=== PATIENT | female | born 1950 | race Caucasian/White ===

== ENCOUNTER 2018-09-19 06:43 | Day surgery (SDC) | payer MEDICARE, OTHER ==
[~2018-09-19] VITALS: Ht 157.5 cm; Wt 97.5 kg
[~2018-09-19 06:43] MED LIST: ASPI81CH PO; Dyazide 37.5-21 EACH PO; LEVSOD88 PO; OXYACE5T PO
--- NOTE | 2018-09-19 07:06 | NUR ---
History, Chart, Medications and Allergies reviewed before start of procedure. Patient confirms NPO status and agrees with scheduled surgery. Reports taking all of colon prep with clear results. Patient States Post-Procedure ride home has been arranged with her .
--- NOTE | 2018-09-19 07:35 | NUR ---
Lungs clear T/O to Auscultation.
--- NOTE | 2018-09-19 08:32 | NUR ---
09/19/[address] ANESTHESIA
--- NOTE | 2018-09-19 08:55 | NUR ---
PT LETHARGIC UPON RETURN FROM PROCEDURE. WAKES WITH VERBAL + TOUCH. DOES NOT ANSWER QUESTIONS OR OPEN EYES. AT BEDSIDE. CLOSE MONITORING.
--- NOTE | 2018-09-19 09:11 | NUR ---
PT AWAKE, ALERT, CONVERSING WITH STAFF. STATES SHE WOULD LIKE TO GO HOME. DENIES PAIN OR DISCOMFORT. REVIEWED DISCHARGE INSTRUCTIONS WITH PATIENT AND , BOTH OF WHOM VERBALIZE UNDERSTANDING OF ALL INSTRUCTIONS GIVEN.
--- NOTE | 2018-09-19 09:27 | NUR ---
IV D/C TIP INTACT. PT DISCHARGED HOME VIA W/C WITH TO DRIVE HER.
== END 2018-09-19 22:55 | disposition home or self-care (01) ==
LOC: ORSCMMR 06:43 → ORD 08:15 → ORSCMMR 08:30
PROVIDERS: Surgery
PROC: 0DBL8ZX Excision of Transverse Colon, Via Natural or Artificial Opening Endoscopic, Diagnostic (ICD-10-PCS; principal; 2018-09-19 08:30)
DX: Z12.11 Encounter for screening for malignant neoplasm of colon (principal); Z80.0 Family history of malignant neoplasm of digestive organs; D12.3 Benign neoplasm of transverse colon; I10 Essential (primary) hypertension; E03.9 Hypothyroidism, unspecified; E66.01 Morbid (severe) obesity due to excess calories; Z68.39 Body mass index [BMI] 39.0-39.9, adult; Z79.899 Other long term (current) drug therapy; Z79.82 Long term (current) use of aspirin
CPT/HCPCS: 82947; 88305; J7120

== ENCOUNTER → 2019-05-03 | Outpatient (CLI) | payer MEDICARE, OTHER ==
[~2019-05-03] MED LIST changes: +CLIN300 PO; +EPIPEN 2-P0.3 MG/0.3 IM; +PRED20 PO
== END | disposition home or self-care (01) ==
LOC: LAB SHORT 14:00 → LAB 14:00
DX: L08.9 Local infection of the skin and subcutaneous tissue, unspecified (principal)
CPT/HCPCS: 87070; 87077; 87102; 87147; 87186; 87205

== ENCOUNTER 2019-05-08 04:16 | Emergency (ER) | payer MEDICARE, OTHER ==
[~2019-05-08] VITALS: Ht 157.5 cm; Wt 86.2 kg
[~2019-05-08 04:16] MED LIST changes: -CLIN300 PO; -EPIPEN 2-P0.3 MG/0.3 IM; -PRED20 PO
[2019-05-08] MEDS ORDERED: CLIN300 PO (04:48)
[2019-05-08 05:40] LABS: BASOPHILS ABSOLUTE AUTO 0.05 K/mm3 (0.00-0.23); BASOPHILS PERCENT AUTO 0 % (0-2); EOSINOPHILS PERCENT AUTO 5 % (0-6); Hematocrit 41.8 % (33.0-51.0); Hemoglobin 13.4 g/dL (11.5-16.0); IMMATURE GRAN ABSOLUTE AUTO 0.06 K/mm3 (0.00-0.10); IMMATURE GRAN PERCENT AUTO 1 % (0-1); LYMPHOCYTES ABSOLUTE AUTO 2.96 K/mm3 (0.84-5.20); LYMPHOCYTES PERCENT AUTO 23 % (21-46); MONOCYTES ABSOLUTE AUTO 0.83 K/mm3 (0.16-1.47); MONOCYTES PERCENT AUTO 7 % (4-13); Mean Corpuscular HGB 26.1 pg (26.0-34.0); Mean Corpuscular HGB Conc 32.1 g/dL (31.5-36.5); Mean Corpuscular Volume 81 fL (80-100); Mean Platelet Volume 9.4 fL (9.1-12.4); NEUTROPHILS ABSOLUTE AUTO 8.33 K/mm3 (1.96-9.15); NEUTROPHILS PERCENT AUTO 65 % (41-73); Platelet Count 306 K/mm3 (150-400); RDW Coefficient Variation 13.6 % (11.7-14.2); Red Blood Cell Count 5.14 M/mm3 (3.80-5.20); White Blood Cell Count 12.83 K/mm3 (4.00-11.30)
[2019-05-08 05:49] LABS: Anion Gap 6 mmol/L (6-16); Blood Urea Nitrogen 15 mg/dL (8-24); Bun/Creatinine Ratio 20.5 (12.0-20.0); CO2, Blood 29 mmol/L (21-32); Calcium, Blood 8.6 mg/dL (8.5-10.1); Chloride, Blood 104 mmol/L (98-108); Creatinine, Blood 0.73 mg/dL (0.40-1.00); Glomerular Filtration Rate >60 (60-); Glucose, Blood 114 mg/dL (70-99); Potassium, Blood 3.8 mmol/L (3.5-5.5); Sodium, Blood 139 mmol/L (136-145)
[2019-05-08] MEDS ORDERED: EPIPEN 2-P0.3 MG/0.3 IM (06:02)
[2019-05-08] MEDS ORDERED: PRED20 PO (06:02)
== END 2019-05-08 06:53 | disposition home or self-care (01) ==
LOC: ER 04:16
PROVIDERS: Emergency Medicine
DX: T78.2XXA Anaphylactic shock, unspecified, initial encounter (principal); I10 Essential (primary) hypertension; Z87.891 Personal history of nicotine dependence; Z88.0 Allergy status to penicillin; Z88.2 Allergy status to sulfonamides; Z88.8 Allergy status to other drugs, medicaments and biological substances; Z88.1 Allergy status to other antibiotic agents; Z88.5 Allergy status to narcotic agent; Z79.82 Long term (current) use of aspirin; Z79.899 Other long term (current) drug therapy
CPT/HCPCS: 80048; 85025; 96372-59; 96374; 96375; 99283-25; J0171; J1200; J2270; J2930; J7030; Q0163

== ENCOUNTER → 2020-04-27 | Outpatient (CLI) | payer MEDICARE, OTHER ==
[~2020-04-27] MED LIST changes: +CLIN300 PO; +EPIPEN 2-P0.3 MG/0.3 IM; +PRED20 PO
== END | disposition home or self-care (01) ==
LOC: LAB SHORT 08:30 → LAB EV 08:30
DX: N39.0 Urinary tract infection, site not specified (principal)
CPT/HCPCS: 87077; 87086; 87186

== ENCOUNTER → 2021-02-10 | Outpatient (CLI) | payer MEDICARE, OTHER | LOC: LAB 12:15 → LAB SHORT 12:15 | DX: L08.9 Local infection of the skin and subcutaneous tissue, unspecified (principal); D48.5 Neoplasm of uncertain behavior of skin | CPT/HCPCS: 87070; 87205; 87798 ==

== ENCOUNTER → 2023-11-21 | Outpatient (CLI) | payer MEDICARE, OTHER ==
[2023-11-21 16:01] LABS: Bacterial Vaginosis PCR Negative (NEGATIVE); Candida Group, PCR NOT DETECTED (NOT DETECT); Candida glabrata-krusei, PCR DETECTED (NOT DETECT)
== END ==
LOC: LAB 14:43 → LAB SHORT 14:43
PROVIDERS: Nurse Practitioner
DX: N76.0 Acute vaginitis (principal); R30.0 Dysuria
CPT/HCPCS: 87086; 87481; 87661; 87801

== ENCOUNTER → 2024-03-13 | Outpatient (CLI) | payer MEDICARE, OTHER ==
[2024-03-13 19:57] LABS: Bacterial Vaginosis PCR Negative (NEGATIVE); Candida Group, PCR NOT DETECTED (NOT DETECT); Candida glabrata-krusei, PCR NOT DETECTED (NOT DETECT)
== END ==
LOC: LAB 15:51 → LAB SHORT 15:51
PROVIDERS: Advanced Practice Midwife
DX: N95.2 Postmenopausal atrophic vaginitis (principal)
CPT/HCPCS: 87481; 87661; 87801

== ENCOUNTER 2024-05-22 06:01 | Day surgery (SDC) | payer MEDICARE, OTHER ==
[~2024-05-22] VITALS: Ht 157.5 cm; Wt 97.9 kg
[2024-05-22] MEDS ORDERED: Lactated Ringer's 1,000 ML IV SCH (06:10)
[2024-05-22 06:39] VITALS: BP 147/50
[2024-05-22] MEDS ORDERED: OLME20 PO (06:58)
[2024-05-22] MEDS ORDERED: propofoL 40 ML IV ONE (07:15)
--- NOTE | 2024-05-22 07:43 | NUR ---
05/22/24 0743 Olimpia Salamanca History, Chart, Medications and Allergies reviewed before start of procedure.
[2024-05-22 08:07] VITALS: BP 125/58
[2024-05-22 08:23] VITALS: BP 118/52
--- NOTE | 2024-05-22 08:34 | NUR ---
Discharge instructions reviewed with patient. Patient verbalizes understanding. Copy given to patient to take home. Patient States Post-Procedure ride home has been arranged. Discharged via wheelchair to private car for ride home.
== END 2024-05-22 08:35 | disposition home or self-care (01) ==
LOC: ORSCMMR 06:01 → ORSCSDS 10:00
PROVIDERS: Surgery
PROC: 0DJD8ZZ Inspection of Lower Intestinal Tract, Via Natural or Artificial Opening Endoscopic (ICD-10-PCS; principal; 2024-05-22 07:30)
DX: Z12.11 Encounter for screening for malignant neoplasm of colon (principal); Z80.0 Family history of malignant neoplasm of digestive organs; G47.33 Obstructive sleep apnea (adult) (pediatric); I10 Essential (primary) hypertension; E07.9 Disorder of thyroid, unspecified; E66.9 Obesity, unspecified; Z68.39 Body mass index [BMI] 39.0-39.9, adult; Z79.899 Other long term (current) drug therapy; Z79.82 Long term (current) use of aspirin; Z87.891 Personal history of nicotine dependence
CPT/HCPCS: J2704; J7120